=== PATIENT | female | born 1980 | race American Indian/Alaskan Native ===

== ENCOUNTER 2016-09-24 12:08 | Emergency (ER) | payer MEDICAID ==
[2016-09-24 12:31] VITALS: BP 125/90
--- NOTE | 2016-09-24 13:00 | Emergency Department Report ---
Entered by MYRNA TREVIZO, acting as scribe for ANDRE LEE PA. Chief Complaint: Urogenital-Female Stated Complaint: LOWER STOMACH PAIN Time Seen by Provider: 09/24/16 12:35 - HPI History of Present Illness: 36 y/o female presents c/o pelvic pain and dysuria that started 2.5 weeks ago. Sx include clear mucous vaginal discharge and increase in urination frequency/ urgency. Pt denies hematuria or vaginal bleeding. Pt notes tests have been negative. LMP 3 months ago. - ROS Review of Systems: as noted in HPI - Exam Vital Signs: Vital Signs 09/24/16 12:21 Temperature 98.8 F Pulse Rate 84 Respiratory 17 Rate Blood Pressure 125/90 O2 Sat by Pulse 100 Oximetry Physical Exam: General: 36 y/o female in no acute distress. Well-developed, well-nourished. CV: Regular rate and rhythm. No murmurs rubs or gallops. Lungs: Clear to auscultation bilaterally. Abdomen: pelvic tenderness. No guarding or rebound tenderness. Normal bowel sounds. Mini Neuro: Alert and oriented 3. MSE screening note: Focused history and physical exam performed. Due to findings the following was ordered:UA and pregnacy test ED Disposition for MSE Condition: Stable This documentation as recorded by the scribe,MYRNA TREVIZO,accurately reflects the service I personally performed and the decisions made by JESUS carmen FABIOLA N, PA.
[2016-09-24 13:09] LABS: Mucus,Urine 1+ /HPF
[2016-09-24 13:15] LABS: Bilirubin,Urine NEG (Negative); Blood,Urine NEG (Negative); Ketones,Urine NEG (Negative); Leukocyte Esterase,Urine TR (Negative); Nitrite,Urine NEG (Negative); Protein,Urine <15 mg/dL mg/dL (Negative); Urobilinogen,Urine < 2.0 mg/dL (<2.0)
[2016-09-24] MEDS ORDERED: ZITHROMAX PO ONE (13:53)
[2016-09-24] MEDS ORDERED: XYLOCAINE 1% MPF 5 mL INFILTRATI ONE (13:56)
[2016-09-24] MEDS ORDERED: ROCEPHIN IM ONE (13:56)
[2016-09-24] MEDS ORDERED: NACL BACTERIOSTATIC INFILTRATI ONE (14:13)
[2016-09-24] MEDS ORDERED: WATER FOR INJ (PF) IM ONE (15:00)
--- NOTE | 2016-09-24 15:39 | Emergency Department Report ---
ED Female HPI - General Chief complaint: Urogenital-Female Stated complaint: LOWER STOMACH PAIN Time Seen by Provider: 09/24/16 13:46 Source: patient Mode of arrival: Ambulatory Limitations: No Limitations - History of Present Illness Initial comments: 36-year-old -[place] female comes in complaint of lower pelvic pain off and on times a couple of months. She also states no menstrual cycle 3 months reports she has done multiple tests was all come back negative. She complains that she is having pulling sensation of pressure at the end of her urination since yesterday. She denies any hematuria but does complain of frequency and urgency to urinate. She denies any vaginal bleeding she reports that she had vaginal discharge about 2-1/2 weeks ago but none now. Patient reports no past medical history currently takes no medication and has no known drug allergies. - Related Data Home Medications Medication Instructions Recorded Confirmed Last Taken No Known Home Medications [No 11/28/15 09/24/16 Unknown Reported Home Medications] Allergies Allergy/AdvReac Type Severity Reaction Status Date / Time No Known Allergies Allergy Verified 09/24/16 12:19 ED Review of Systems ROS: Stated complaint: LOWER STOMACH PAIN Other details as noted in HPI Constitutional: denies: chills, fever Eyes: denies: eye pain, eye discharge, vision change ENT: denies: ear pain, throat pain Respiratory: no symptoms reported Cardiovascular: denies: chest pain, palpitations Genitourinary: urgency, dysuria, frequency, other (pelvic pain) Musculoskeletal: denies: back pain, joint swelling, arthralgia Skin: denies: rash, lesions Neurological: denies: headache, weakness, paresthesias Psychiatric: denies: anxiety, depression Hematological/Lymphatic: denies: easy bleeding, easy bruising ED Past Medical Hx - Past Medical History Previous Medical History?: No - Surgical History Hx Cholecystectomy: Yes Additional Surgical History: ; tubal - Social History Smoking Status: Never Smoker Substance Use Type: None - Medications Home Medications: Home Medications Medication Instructions Recorded Confirmed Last Taken Type No Known Home Medications [No 11/28/15 09/24/16 Unknown History Reported Home Medications] ED Physical Exam - General Limitations: No Limitations - Head Head exam: Present: atraumatic, normocephalic - Eye Eye exam: Present: normal appearance - ENT ENT exam: Present: mucous membranes moist - External exam: Present: normal external exam. Absent: erythema, swelling, lesions Speculum exam: Present: normal speculum exam, vaginal discharge. Absent: erythema, cervical discharge, vaginal bleeding Bi-manual exam: Present: normal bi-manual exam. Absent: cervical motion tendernes, adnexal tenderness, adnexal mass, uterine enlargement, uterine tenderness ED Course Vital Signs 09/24/16 12:21 Temperature 98.8 F Pulse Rate 84 Respiratory 17 Rate Blood Pressure 125/90 O2 Sat by Pulse 100 Oximetry ED Medical Decision Making - Medical Decision Making Patient has been evaluated by this provider fast track. Discussed with patient that her urine appears to show signs of infection. Does not appear to be a urinary tract infection. Discussed patient that we will treat her presumptively for STDs. Wet prep were within normal limits. We will give her a Rocephin injection [place] azithromycin. Recommend patient to have her partner tested also recommended for patient to call within 3-7 days for laboratory results of her cultures. Also recommend patient to have a HIV test done at the health department. Critical care attestation.: If time is entered above; I have spent that time in minutes in the direct care of this critically ill patient, excluding procedure time. ED Disposition Clinical Impression: Dysuria, Pelvic pain, Screen for STD (sexually transmitted disease) Disposition: DISCHARGED TO HOME OR SELFCARE Is pt being admited?: No Does the pt Need Aspirin: No Condition: Stable Instructions: Chlamydia Infection (ED), Sexually Transmitted Diseases (ED), Safe Sex (ED) Additional Instructions: It is very important for you to call within 3-7 days to check your results. Note to have been treated presumptively for STD. Recommend getting an HIV test you can have that done at the health Department. Referrals: PRIMARY CARE, [Primary Care Provider] - 3-5 Days Forms: Work/School Release Form(ED)
== END 2016-09-24 15:50 | disposition home or self-care (01) ==
LOC: ED 12:08
DX: R30.0 Dysuria (principal); R10.2 Pelvic and perineal pain; Z11.3 Encounter for screening for infections with a predominantly sexual mode of transmission
CPT/HCPCS: 81001; 81025; 87210; 87591; 96372; 99284; J0696

== ENCOUNTER 2017-07-26 20:18 | Emergency (ER) | payer MEDICAID ==
[2017-07-26 21:33] LABS: Basophils % (Auto) 0.7 % (0.0-1.8); Eosinophils # (Auto) 0.2 K/mm3 (0.0-0.4); Eosinophils % (Auto) 3.2 % (0.0-4.3); Hematocrit 36.1 % (30.3-42.9); Hemoglobin 12.3 gm/dl (10.1-14.3); Lymphocytes % (Auto) 20.2 % (13.4-35.0); Mean Corpuscular HGB Conc 34 % (30-34); Mean Corpuscular Hemoglobin 26 pg (28-32); Mean Corpuscular Volume 77 fl (79-97); Monocytes # (Auto) 0.3 K/mm3 (0.0-0.8); Monocytes % (Auto) 6.4 % (0.0-7.3); Platelet Count 420 K/mm3 (140-440); Red Blood Count 4.68 M/mm3 (3.65-5.03); Red Cell Distribution Width 15.1 % (13.2-15.2)
[2017-07-26 21:52] LABS: Alanine Aminotransferase 21 units/L (7-56); Albumin 3.9 g/dL (3.9-5); BUN/Creatinine Ratio 10; Blood Urea Nitrogen 6 mg/dL (7-17); Calcium 8.7 mg/dL (8.4-10.2); Hemolysis Index 10; Lipase 13 units/L (13-60)
[2017-07-26] MEDS ORDERED: NACL 0.9% 1000 ML 1,000 ML IV ONE (23:43)
[2017-07-26] MEDS ORDERED: TORADOL IV ONE (23:43)
[2017-07-26] MEDS ORDERED: BENADRYL IV ONE (23:43)
[2017-07-26] MEDS ORDERED: REGLAN IV ONE (23:43)
[2017-07-27 00:07] LABS: Bilirubin,Urine NEG (Negative); Blood,Urine SM (Negative); Color,Urine Yellow (Yellow); Mucus,Urine 3+ /HPF; Protein,Urine <15 mg/dL mg/dL (Negative)
--- NOTE | 2017-07-27 00:25 | Emergency Department Report ---
HPI - General Chief Complaint: Abdominal Pain Time Seen by Provider: 07/26/17 23:31 - HPI HPI: The patient is a 36-year-old female presents for evaluation of abdominal pain. The patient reports 3 days of upper abdominal pain, cramping in quality, moderate in severity, exacerbated with retching, and associated with nausea, nonbilious, nonbloody emesis, and multiple episodes of loose watery stools. The patient denies fever, chills, night sweats, chest pain, dyspnea, hematemesis, blood in the stool, dark tarry stool, dysuria, hematuria, flank pain, genital discharge, inability to pass flatus. ED Past Medical Hx - Past Medical History Previous Medical History?: No Additional medical history: hypoglycemic - Surgical History Hx Cholecystectomy: Yes Additional Surgical History: ; tubal - Social History Smoking Status: Never Smoker Substance Use Type: None - Medications Home Medications: Home Medications Medication Instructions Recorded Confirmed Last Taken Type Ondansetron [Zofran TAB] 4 mg PO Q8HR PRN #15 tablet 07/27/17 Unknown Rx traMADol [Ultram 50 MG tab] 50 mg PO Q6HR PRN #15 tablet 07/27/17 Unknown Rx ED Review of Systems ROS: Stated complaint: ALLERGIC REACTION,CHILL Other details as noted in HPI Constitutional: denies: fever ENT: denies: throat or neck pain Respiratory: denies: cough, shortness of breath Cardiovascular: denies: chest pain Endocrine: denies unexplained weight loss or gain Gastrointestinal: reports abdominal pain, nausea Genitourinary: denies: dysuria Musculoskeletal: denies: leg swelling Skin: denies: rash Neurological: denies: headache Hematological/Lymphatic: denies: easy bleeding or easy bruising Psych: denies sadness or hopelessness Physical Exam - Physical Exam Vital Signs: Vital Signs 07/26/17 07/26/17 07/26/17 20:45 23:43 23:44 Temperature 99.2 F 99.0 F Pulse Rate 115 H 106 H Respiratory 20 14 14 Rate Blood Pressure 118/86 Blood Pressure 118/86 127/81 [Left] O2 Sat by Pulse 100 100 100 Oximetry Physical Exam: General: well-nourished, well-developed, no acute distress Head: Normocephalic, atraumatic Eyes: normal sclera ENT: Mucous membranes are pink and moist Neck: trachea midline, neck supple, No neck stiffness, no cervical adenopathy Respiratory: Breath sounds equal bilaterally, no wheezing, rales, or rhonchi Cardio: S1 and S2 present, no murmurs, rubs, gallops, capillary refill is brisk Abdomen: Normoactive bowel sounds, soft abdomen, left upper quadrant tenderness to palpation present, no rigidity, no guarding or rebound tenderness Musc: No pitting edema Skin: No rash Neuro: no facial drooping, normal speech Psych: Normal affect ED Course Vital Signs 07/26/17 07/26/17 07/26/17 20:45 23:43 23:44 Temperature 99.2 F 99.0 F Pulse Rate 115 H 106 H Respiratory 20 14 14 Rate Blood Pressure 118/86 Blood Pressure 118/86 127/81 [Left] O2 Sat by Pulse 100 100 100 Oximetry ED Medical Decision Making - Lab Data Result diagrams: 07/26/17 21:16 07/26/17 21:16 - Medical Decision Making The patient was seen and examined by myself. The patient is placed on a personnel monitor and continuous pulse ox. On initial evaluation, the patient was found to be in no distress. Evaluation orders are placed. IV access is established and the patient is given 1 L normal saline fluid bolus and Zofran for nausea, and IV analgesic for pain Lab results were non-concerning including WBC, hemoglobin, hematocrit, electrolytes, renal function, LFTs, lipase, and urinalysis. The patient was reevaluated and reported that their symptoms were markedly improved. The patient is stable for discharge with outpatient follow-up. The patient is given follow-up and return instructions. The patient expressed understanding and agreed with the plan. The patient is discharged in stable condition. Critical care attestation.: If time is entered above; I have spent that time in minutes in the direct care of this critically ill patient, excluding procedure time. ED Disposition Clinical Impression: Acute abdominal pain in left upper quadrant, Dehydration Disposition: - TO HOME OR SELFCARE Is pt being admited?: No Does the pt Need Aspirin: No Condition: Stable Instructions: Abdominal Pain (ED), Gastroenteritis (ED) Referrals: PRIMARY CARE, [Primary Care Provider] - 3-5 Days Time of Disposition: 02:45
[2017-07-27 03:52] VITALS: BP 94/50
== END 2017-07-27 03:25 | disposition home or self-care (01) ==
LOC: ED 20:18
DX: R10.12 Left upper quadrant pain (principal); E86.0 Dehydration
CPT/HCPCS: 36415; 80053; 81001; 83690; 84703; 85025; 96361; 96374; 96375; 99284; J1200; J1885; J2765